=== PATIENT | male | born 1945 | race Caucasian/White ===

== ENCOUNTER 2016-12-03 08:00 | Day surgery (SDC) | payer MEDICARE ==
[2016-12-03] MEDS ORDERED: FENTANYL 100 MCG/2 ML VIAL ONE (11:20)
[2016-12-03] MEDS ORDERED: PROPOFOL 40 ML IV ONE (11:21)
== END 2016-12-03 15:16 | disposition home or self-care (01) ==
LOC: SDC 08:00
PROVIDERS: ATTEND Family Medicine
DX: Z12.11 Encounter for screening for malignant neoplasm of colon (principal); K57.30 Diverticulosis of large intestine without perforation or abscess without bleeding; I10 Essential (primary) hypertension; E78.5 Hyperlipidemia, unspecified; G47.30 Sleep apnea, unspecified; I45.6 Pre-excitation syndrome
CPT/HCPCS: J3010; G0121